=== PATIENT | female | born 1970 | race Native Hawaiian/Other Pacific Islander ===

== ENCOUNTER 2017-12-13 09:15 | Outpatient (CLI) | payer BC ==
[2017-12-13 09:50] LABS: POTASSIUM 4.1 mmol/L (3.6-5.2)
== END 2017-12-13 23:45 | disposition home or self-care (01) ==
LOC: CT 09:15
PROVIDERS: Nurse Practitioner Family
DX: R10.9 Unspecified abdominal pain (principal); R10.33 Periumbilical pain; R10.32 Left lower quadrant pain; M54.5 Low back pain
CPT/HCPCS: 36415; 80053; Q9963